=== PATIENT | female | born 1955 | race Caucasian/White ===

== ENCOUNTER 2021-01-30 20:29 | Emergency (ER) | payer BC ==
[~2021-01-30] VITALS: Ht 162.6 cm; Wt 59.0 kg
[2021-01-30] MEDS ORDERED: NORVASC5 MG PO (20:43)
[2021-01-30] MEDS ORDERED: MELATONIN3 M1 PO (20:44)
[2021-01-30] MEDS ORDERED: AMITRIPTYLINE H25 M3 PO (20:44)
[2021-01-30] MEDS ORDERED: MAGNESIUM250 M1 PO (20:44)
[2021-01-30] MEDS ORDERED: ZINC10 MG PO (20:44)
[2021-01-30] MEDS ORDERED: VALERIAN ROOT1 GM PO (20:45)
[2021-01-30] MEDS ORDERED: PHENERGAN 25 MG25 M1 PO ×2 (21:45→21:48)
[2021-01-30] MEDS ORDERED: TRAMADOL 50 MG50 MG PO ×2 (21:45→21:48)
[2021-01-30 22:20] VITALS: BP 149/77
== END 2021-01-30 22:20 | disposition home or self-care (01) ==
LOC: M.ERS 20:29
DX: M25.551 Pain in right hip (principal); I10 Essential (primary) hypertension; Z88.6 Allergy status to analgesic agent; Z88.5 Allergy status to narcotic agent; Z79.899 Other long term (current) drug therapy; Z90.710 Acquired absence of both cervix and uterus; Z98.890 Other specified postprocedural states; X50.1XXA Overexertion from prolonged static or awkward postures, initial encounter; Y93.89 Activity, other specified; Y92.89 Other specified places as the place of occurrence of the external cause; Y99.9 Unspecified external cause status